=== PATIENT | male | born 1950 | race Caucasian/White ===

== ENCOUNTER → 2023-04-17 | Outpatient (RCR) | payer MEDICARE, OTHER | END | disposition home or self-care (01) | LOC: CR 04-10 10:54 | DX: Z29.8 Encounter for other specified prophylactic measures (principal); I25.10 Atherosclerotic heart disease of native coronary artery without angina pectoris | CPT/HCPCS: 93798 ==

== ENCOUNTER 2023-05-08 11:06 | Outpatient (RCR) | payer MEDICARE, OTHER | END 2023-05-17 | disposition home or self-care (01) | LOC: CR 11:06 | PROVIDERS: ATTEND Thoracic Surgery (Cardiothoracic Vascular Surgery) | DX: Z29.8 Encounter for other specified prophylactic measures (principal); I25.10 Atherosclerotic heart disease of native coronary artery without angina pectoris | CPT/HCPCS: 93798 ==